=== PATIENT | male | born 1985 | race Caucasian/White ===

== ENCOUNTER 2019-12-27 07:42 | Emergency (ER) | payer BC, OTHER ==
[2019-12-28 14:30] LABS: SARS-CoV-2 MS2 Positive; SARS-CoV-2 N Gene Positive; SARS-CoV-2 S Gene Positive; SARS-CoV-2 orf1ab Positive
== END 2019-12-27 08:30 | disposition home or self-care (01) ==
LOC: MADERS 07:42
DX: U07.1 COVID-19 (principal)
CPT/HCPCS: 87635; 99283; U0003

== ENCOUNTER 2022-01-24 10:51 | Outpatient (CLI) | payer BC | END 2022-01-24 10:52 | disposition home or self-care (01) | LOC: MADRAD 10:51 | PROVIDERS: ATTEND Family Medicine | DX: M47.812 Spondylosis without myelopathy or radiculopathy, cervical region (principal); M47.816 Spondylosis without myelopathy or radiculopathy, lumbar region; M48.02 Spinal stenosis, cervical region | CPT/HCPCS: 72050; 72100 ==